=== PATIENT | male | born 1975 | race Hispanic/Latino ===

== ENCOUNTER 2019-01-25 18:28 | Emergency (ER) | payer BC, OTHER ==
[~2019-01-25] VITALS: Ht 175.3 cm; Wt 78.5 kg
[~2019-01-25 18:28] MED LIST: Z.0.PRINIVIL20 MG
--- NOTE | 2019-01-25 18:40 | NUR ---
PT STATES HE HURTS HIS BACK 3 WEEKS AGO AND NOT GETTING BETTER. PT STATES HE FELL WHILE CARRING A ARM LOAD.
[2019-01-25] MEDS ORDERED: ONDANSETRON HCL 4 MG ORAL DISINTEGRATING TAB PO ONE (19:30)
[2019-01-25] MEDS ORDERED: HYDROCODONE/APAP 5MG-325MG TAB PO ONE (19:30)
[2019-01-25] MEDS ORDERED: KETOROLAC TROMETHAMINE 60 MG/2 ML VIAL IM ONE (19:30)
[2019-01-25] MEDS ORDERED: PREDNISONE 20 MG TAB PO ONE (19:30)
[2019-01-25] MEDS ORDERED: PREDNISONE 20 MG TAB ONE (19:32)
[2019-01-25] MEDS ORDERED: ONDANSETRON HCL 4 MG ORAL DISINTEGRATING TAB ONE (19:32)
[2019-01-25] MEDS ORDERED: HYDROCODONE/APAP 5MG-325MG TAB ONE (19:33)
[2019-01-25] MEDS ORDERED: KETOROLAC TROMETHAMINE 60 MG/2 ML VIAL ONE (19:33)
--- NOTE | 2019-01-25 20:34 | Diagnostic Imaging Report ---
History: Right-sided lower back pain for 3 weeks, history of picking up something heavy at work. Comparison studies: None Technique: Axial images were obtained through the lumbar spine from T12-S1. Coronal and sagittal images reconstructed from the axial data. Dose modulation, iterative reconstruction, and/or weight based adjustment of the mA/kV was utilized to reduce the radiation dose to as low as reasonably achievable. Intravenous contrast: None Findings: The usual 5 non-rib bearing lumbar vertebral bodies are present. Alignment: Normal lordosis. No scoliosis. 4 mm grade 1 anterolisthesis at L5-S1. Soft tissues: Incidental left nephrolithiasis is partially visualized Paraspinal muscles: Unremarkable. Sacroiliac joints: No degenerative changes. Vertebrae: Bilateral pars defect at L5. No fractures, infection or neoplasm. Degenerative changes: L1-L2: No abnormalities. L2-L3: Disc bulge with superimposed 4 mm central disc protrusion results in mild canal stenosis. No significant foraminal stenosis. L3-L4: Disc bulge effaces anterior thecal sac without significant canal stenosis. No significant foraminal stenosis. L4-L5: Mild degenerative disc disease with decreased intervertebral disc space. Disc bulge with superimposed 7 mm central disc protrusion results in mild canal stenosis. Mild bilateral foraminal stenosis. L5-S1: Disc bulge asymmetric to right without significant canal stenosis. Moderate right foraminal stenosis. IMPRESSION: 1. Multilevel lumbar spondylosis from L2-L3 to L5-S1, particularly results in mild canal stenosis at L2-L3 and L4-L5. 2. Mild bilateral foraminal stenosis at L4-L5 and moderate right foraminal stenosis at L5-S1. 3. Bilateral pars defect at L5, with grade 1 anterolisthesis at L5-S1. 4. Ligament, spinal cord and or vascular abnormalities cannot be excluded on the basis of this examination. Signed by: Dr. Jacqueline Coyle M.D. on 01/25/2019 8:30 PM
[2019-01-26 03:58] VITALS: BP 138/85
== END 2019-01-25 20:52 | disposition home or self-care (01) ==
LOC: FSED 18:28
DX: M54.16 Radiculopathy, lumbar region (principal); G89.11 Acute pain due to trauma; X50.0XXA Overexertion from strenuous movement or load, initial encounter; X50.9XXA Other and unspecified overexertion or strenuous movements or postures, initial encounter; Y93.89 Activity, other specified; Y92.89 Other specified places as the place of occurrence of the external cause; Y99.0 Civilian activity done for income or pay
CPT/HCPCS: 72131; J1885; J7512; Q0162; 99283